=== PATIENT | female | born 1975 | race Two or more races ===

== ENCOUNTER 2021-05-15 04:58 | Emergency (ER) | payer OTHER ==
[~2021-05-15] VITALS: Ht 157.5 cm; Wt 55.3 kg
[2021-05-15] MEDS ORDERED: ADVIL (05:22)
[2021-05-15] MEDS ORDERED: CYCLOBENZAPRINE10 MG PO (11:56)
[2021-05-15] MEDS ORDERED: PERCOCET 5-3251 EACH PO (11:56)
[2021-05-15] MEDS ORDERED: DICLOFENAC POTA50 MG PO (11:56)
== END 2021-05-15 12:06 ==
LOC: ER 04:58
DX: S76.812S Strain of other specified muscles, fascia and tendons at thigh level, left thigh, sequela (principal); X50.0XXS Overexertion from strenuous movement or load, sequela

== ENCOUNTER 2022-01-15 21:00 | Emergency (ER) | payer OTHER ==
[~2022-01-15] VITALS: Ht 157.5 cm; Wt 59.0 kg
[~2022-01-15 21:00] MED LIST: ADVIL; CYCLOBENZAPRINE10 MG PO; DICLOFENAC POTA50 MG PO; PERCOCET 5-3251 EACH PO
[2022-01-15] MEDS ORDERED: WELLBUTRIN XL150 M1 PO (21:12)
== END 2022-01-15 23:25 | disposition home or self-care (01) ==
LOC: ER 21:00
DX: S62.653A Nondisplaced fracture of middle phalanx of left middle finger, initial encounter for closed fracture (principal); X58.XXXA Exposure to other specified factors, initial encounter; Y93.E9 Activity, other interior property and clothing maintenance; Y92.018 Other place in single-family (private) house as the place of occurrence of the external cause; Y99.9 Unspecified external cause status; Z88.0 Allergy status to penicillin

== ENCOUNTER 2023-04-19 09:30 | Outpatient (CLI) | payer OTHER ==
[~2023-04-19 09:30] MED LIST changes: +WELLBUTRIN XL150 M1 PO
== END 2023-04-19 09:45 | disposition home or self-care (01) ==
LOC: PPH VACUNA 09:30
PROVIDERS: ATTEND Emergency Medicine Pediatric Emergency Medicine
DX: Z23 Encounter for immunization (principal)

== ENCOUNTER 2024-04-12 19:21 | Emergency (ER) | payer OTHER ==
[~2024-04-12] VITALS: Ht 157.5 cm; Wt 59.9 kg
[2024-04-12] MEDS ORDERED: ADERALL (19:28)
[2024-04-12] MEDS ORDERED: KETOROLAC TROMETHAMINE 30 MG VIAL ONE (19:40)
[2024-04-12] MEDS ORDERED: BARIUM SULFATE 450 ML ORAL.SUSP PO ONE (19:41)
[2024-04-12] MEDS ORDERED: KETOROLAC TROMETHAMINE 30 MG VIAL IV ONE (19:45)
[2024-04-12 20:34] LABS: HEMATOCRIT 40.7 % (36.0-45.00); HEMOGLOBIN 14.1 g/dL (12.0-15.00); MEAN CELL VOLUME 96.4 fL (80.00-100.00); MEAN CORPUSCULAR HEMOGLOBIN 33.5 pg (27.00-32.0); MEAN CORPUSCULAR HGB CONC 34.7 g/dl (32.0-36.0); PLATELET COUNT 249 K/uL (150-450); RED BLOOD COUNT 4.22 M/uL (4.00-6.00)
[2024-04-12 20:51] LABS: CALCIUM 9.6 mg/dL (8.5-10.1); CREATININE SERUM 0.92 mg/dL (0.55-1.02); GFR 64.88; POTASSIUM 3.67 mEq/L (3.5-5.1)
[2024-04-12 21:23] LABS: PH,URINE 5.5 (5.0-8.0); URINE APPEARANCE Clear; URINE BILIRRUBIN Negative (NEGATIVE); URINE BLOOD Small; URINE COLOR Yellow; URINE GLUCOSE Negative (NEGATIVE); URINE KETONE Negative (NEGATIVE); URINE LEUKOCYTE Trace; URINE NITRATE Negative; URINE PROTEIN Negative (NEGATIVE); URINE UROBILINOGEN 0.2 E.U./dl
[2024-04-12 21:27] LABS: URINE BACTERIA 449.7 uL (0.0-1933); URINE EPITHELIAL CELLS 19.6 uL (0.0-38.8); URINE RBC 9.7 uL (0.0-20.8); URINE WBC 9.5 uL (0.0-23.2)
[2024-04-13] MEDS ORDERED: KETO10TA2 PO (01:55)
[2024-04-13] MEDS ORDERED: CIPRO500 MG PO (01:56)
== END 2024-04-13 02:02 | disposition home or self-care (01) ==
LOC: ER 19:22
PROVIDERS: Emergency Medicine
DX: R10.9 Unspecified abdominal pain (principal); Z88.0 Allergy status to penicillin; F32.89 Other specified depressive episodes; F98.8 Other specified behavioral and emotional disorders with onset usually occurring in childhood and adolescence